=== PATIENT | male | born 1990 | race African-American/Black ===

== ENCOUNTER 2020-03-08 16:02 | Emergency (ER) | payer BC ==
[~2020-03-08] VITALS: Ht 177.8 cm; Wt 79.4 kg
[~2020-03-08 16:02] MED LIST: ALBMDI INH; FOLI-43 PO; IBUP-1968 PO; LACT1CAP72 PO; LEVO250T2 PO
[2020-03-08 17:25] VITALS: BP_SYST 146
[2020-03-08] MEDS ORDERED: NACL 0.9% 1,000 ML IV ONE (18:30)
[2020-03-08] MEDS ORDERED: MORPHINE 4 MG/ML INJ. SYRINGE IVP ONE ×2 (18:30→19:00)
--- NOTE | 2020-03-08 18:30 | NUR ---
RECEIVED AND IN ROOM, PT CALM, ALERT, RESP UNLABORED, SKIN WARM AND DRY. COMMUNICATES CLEARLY. WRITHING IN PAIN, C/O SEVER SICKLE CELL EXACERBATION AAO, CLEAR MENTATION AND SPEECH MOTHER AT BEDSIDE
--- NOTE | 2020-03-08 18:55 | NUR ---
DR DONAHUE AT BEDSIDE
[2020-03-08 18:59] LABS: MEAN CORPUSCULAR HGB CONC 33 % (32-36); PLATELET COUNT (AUTO) 225 K/uL (130-430); RETICULOCYTE COUNT 3.7 % (0.5-1.5)
[2020-03-08 19:00] LABS: CALCIUM 9.4 mg/dL (8.4-11.0); CREATININE 1.2 mg/dL (0.55-1.30); POTASSIUM 3.6 mmol/L (3.5-5.1)
[2020-03-08 19:04] LABS: HEMATOCRIT 42.6 % (36-54); HEMOGLOBIN 13.9 g/dL (14.0-18.0); MEAN CORPUSCULAR HEMOGLOBIN 28 pg (27-31); MEAN CORPUSCULAR VOLUME 84 fL (79.0-98.0); RED BLOOD CELL COUNT(AUTO) 5.07 MIL/uL (4.2-6.2); RED CELL DISTRIBUTION WIDTH 15.9 % (9.0-15.0); WHITE BLOOD COUNT (AUTO) 18.3 K/uL (4.8-10.8)
[2020-03-08 19:18] LABS: BAND % (MANUAL) 2 % (0-6)
[2020-03-08 19:19] VITALS: BP_SYST 130
[2020-03-08 19:19] LABS: BASOPHILS % (MANUAL) 0 % (0-2); EOSINOPHILS % (MANUAL) 0 % (0-7); LYMPHOCYTES % (MANUAL) 12 % (20-46); MONOCYTES % (MANUAL) 1 % (0-11)
[2020-03-08] MEDS ORDERED: fentaNYL CITRATE/PF 100 MCG/2 ML AMP IVP ONE (19:45)
--- NOTE | 2020-03-08 20:18 | NUR ---
RESTING EASY, CALM, , NO MOANING, SLEEPING
--- NOTE | 2020-03-08 20:44 | NUR ---
Patient given written and verbal discharge instructions and verbalizes understanding. ER MD discussed with patient the results and treatment provided. Patient in stable condition. ID arm band removed. IV catheter removed intact and dressing applied, no active bleeding. Rx of NORCO given. Patient educated on pain management and to follow up with PMD. Pain Scale2/10 Opportunity for questions provided and answered. Medication side effect fact sheet provided.
== END 2020-03-08 20:44 | disposition home or self-care (01) ==
LOC: SED 16:02
DX: D57.00 Hb-SS disease with crisis, unspecified (principal); M54.5 Low back pain; Z91.041 Radiographic dye allergy status; Z79.899 Other long term (current) drug therapy
CPT/HCPCS: 36415; 80048; 81002; 85007; 85027; 85044; 96374; 96375; 96376; 99284; J2270; J3010; J7030